=== PATIENT | female | born 1995 | race Two or more races ===

== ENCOUNTER 2018-07-04 07:23 | Inpatient (IN) | payer MEDICAID ==
[~2018-07-04 07:23] MED LIST: cefOXitin 2 GM Vial ONE
[2018-07-04] MEDS ORDERED: Gabapentin 300 MG Cap PO ONE (08:45)
[2018-07-04] MEDS ORDERED: Scopolamine 1.5 MG Transdermal Patch TRDERM SCH (08:45)
[2018-07-04] MEDS ORDERED: Celecoxib 200 MG Cap PO ONE (08:45)
[2018-07-04] MEDS ORDERED: Acetaminophen 500 MG Tab PO ONE (08:45)
[2018-07-04] MEDS ORDERED: Dextrose 5%-Lactated Ringers 1,000 ML IV SCH ×2 (09:15→15:00)
[2018-07-04] MEDS ORDERED: fentaNYL 250 MCG/5 ML SDV ONE ×2 (10:29→11:49)
[2018-07-04] MEDS ORDERED: Propofol 200 MG/20 ML SDV ONE (10:29)
[2018-07-04] MEDS ORDERED: Neostigmine Methylsulfate 1 MG/ML 5 ML Syringe ONE (10:29)
[2018-07-04] MEDS ORDERED: Glycopyrrolate 0.2 MG/ML 5 ML MDV ONE (10:29)
[2018-07-04] MEDS ORDERED: Succinylcholine 200 MG/10 ML MDV ONE (10:29)
[2018-07-04] MEDS ORDERED: Dexamethasone 4 MG/ML SDV ONE (10:29)
[2018-07-04] MEDS ORDERED: Ondansetron 4 MG/2 ML SDV ONE (10:29)
[2018-07-04] MEDS ORDERED: Ropivacaine 50 ML, Dexamethasone 8 MG, EPINEPHrine 0.4 MG, Sodium Chloride 0.9% 27.6 ML NERVRT SCH ×4 (10:30)
[2018-07-04] MEDS ORDERED: Lidocaine 2% 100 MG/5 ML Syringe IVPUSH SCH (10:30)
[2018-07-04] MEDS ORDERED: Ketamine 50 MG in Sodium Chloride 0.9% 49.5 ML IV SCH (10:30)
[2018-07-04] MEDS ORDERED: Ketamine 500 MG/5 ML MDV IV SCH (10:30)
[2018-07-04] MEDS ORDERED: Lactated Ringers 1,000 ML ONE (10:32)
[2018-07-04] MEDS ORDERED: Rocuronium 50 MG/5 ML Vial ONE (11:19)
[2018-07-04] MEDS: cefOXitin 2 GM in Sodium Chloride 0.9% 50 ML IV ONE ×2 (11:36→15:00)
[2018-07-04] MEDS ORDERED: Labetalol 20 MG/4 ML Syringe ONE (12:32)
[2018-07-04] MEDS ORDERED: Insulin Lispro 100 Unit/ML 3 ML KwikPen SUBCUT ONE (14:15)
[2018-07-04] MEDS ORDERED: hydrOXYzine HCl 100 MG/2 ML SDV IM ONE (14:26)
[2018-07-04] MEDS ORDERED: HYDROmorphone 1 MG/ML Syringe IV PRN (15:00)
[2018-07-04] MEDS ORDERED: HYDROmorphone 0.5 MG/0.5 ML Syringe IVPUSH PRN (15:00)
[2018-07-04] MEDS ORDERED: diphenhydrAMINE 50 MG/ML SDV IVPUSH PRN (15:00)
[2018-07-04] MEDS ORDERED: Lactated Ringers 1,000 ML IV SCH (15:00)
[2018-07-04] MEDS ORDERED: Metoclopramide 10 MG/2 ML SDV IVPUSH PRN (15:00)
[2018-07-04] MEDS ORDERED: Ondansetron 4 MG/2 ML SDV IVPUSH PRN (15:00)
[2018-07-04] MEDS ORDERED: Labetalol 20 MG/4 ML Syringe IVPUSH PRN (15:00)
[2018-07-04] MEDS: Lidocaine 0.4%/D5W 2 GM/500 ML BAG IV SCH (15:01)
[2018-07-04] MEDS ORDERED: Pantoprazole 40 MG Vial IVPUSH SCH (16:00)
[2018-07-04] MEDS ORDERED: MVI, Adult with Vitamin K 10 ML, Thiamine 200 MG, Chromium/Copper/Mang/Selen/Zn 1 ML in... IV SCH ×4 (16:00)
[2018-07-04] MEDS: cefOXitin 2 GM in Sodium Chloride 0.9% 50 ML IV SCH ×2 (16:20→22:03)
[2018-07-04] MEDS: Acetaminophen Soln 650 MG/20.3 ML UD Cup PO SCH ×2 (16:27→21:59)
[2018-07-04] MEDS: metFORMIN 500 MG Tab PO SCH (16:27)
[2018-07-04] MEDS: Insulin Lispro 100 Unit/ML 3 ML KwikPen SUBCUT PRN ×2 (16:46→22:00)
[2018-07-04] MEDS: Heparin Sodium 5,000 Units/ML Vial SUBCUT SCH (20:48)
[2018-07-04] MEDS: Gabapentin 250 MG/5 ML Solution ML 470 ML Bottle PO SCH (20:50)
[2018-07-04] MEDS ORDERED: Insulin Glargine,Human Rec. Analog 100 Units/ML 3 ML Pen SUBCUT ONE (21:00)
[2018-07-05] MEDS: Lactated Ringers 1,000 ML IV SCH ×2 (01:12→11:29)
[2018-07-05] MEDS: Acetaminophen Soln 650 MG/20.3 ML UD Cup PO SCH ×4 (03:17→21:05)
[2018-07-05] MEDS ORDERED: Iohexol 647 MG/ML 50 ML SDV IVPUSH SCH (04:00)
[2018-07-05] MEDS: Insulin Lispro 100 Unit/ML 3 ML KwikPen SUBCUT PRN ×2 (04:17→10:11)
[2018-07-05] MEDS: cefOXitin 2 GM in Sodium Chloride 0.9% 50 ML IV SCH ×2 (04:17→11:28)
[2018-07-05] MEDS: hydrOXYzine HCl 100 MG/2 ML SDV IM PRN ×2 (04:25→09:18)
[2018-07-05] MEDS ORDERED: Ondansetron 4 MG Tab.DIS PO PRN (07:30)
[2018-07-05] MEDS: Heparin Sodium 5,000 Units/ML Vial SUBCUT SCH ×2 (07:55→21:05)
[2018-07-05] MEDS: metFORMIN 500 MG Tab PO SCH ×2 (07:59→17:26)
[2018-07-05] MEDS: Celecoxib 200 MG Cap PO SCH (07:59)
[2018-07-05] MEDS: Gabapentin 250 MG/5 ML Solution ML 470 ML Bottle PO SCH ×3 (08:57→21:05)
[2018-07-05] MEDS: SCOPOLAMINE PATCH CHECK TOP SCH (08:57)
[2018-07-05] MEDS ORDERED: Insulin Glargine,Human Rec. Analog 100 Units/ML 3 ML Pen SUBCUT SCH ×2 (09:00→21:00)
[2018-07-05] MEDS: Lidocaine 0.4%/D5W 2 GM/500 ML BAG IV SCH (10:09)
--- NOTE | 2018-07-05 12:16 | PCM.PN ---
- General Info Date of Service: 07/05/18 Admission Dx/Problem (Free Text): Laparoscopic Gastric Bypass Lynn-en-y Subjective Update: Pt reports moderate pain in her back. Was given Vistaril and Dilaudid. Denies abdominal or incisional pain. Tolerating po intake. Denies passing any gas. Functional Status: Reports: Pain Controlled, Tolerating Diet, Ambulating, Urinating, Incentive Spirometry - Review of Systems General: Reports: No Symptoms HEENT: Reports: No Symptoms Pulmonary: Reports: No Symptoms Cardiovascular: Reports: No Symptoms Gastrointestinal: Reports: No Symptoms Genitourinary: Reports: No Symptoms Musculoskeletal: Reports: Back Pain Skin: Reports: No Symptoms Neurological: Reports: No Symptoms Psychiatric: Reports: No Symptoms - Patient Data Vitals - Most Recent: Last Vital Signs Temp 36.5 C 07/05/18 11:39 Pulse 89 07/05/18 11:39 Resp 22 H 07/05/18 11:39 BP 133/89 07/05/18 11:39 Pulse Ox 98 07/05/18 11:39 Weight - Most Recent: 98.248 kg I&O - Last 24 Hours: Intake & Output 07/04/18 07/05/18 07/05/18 22:59 06:59 14:59 Intake Total 595 2170 110 Output Total 1530 1740 920 Balance -935 430 -810 Med Orders - Current: Current Medications Acetaminophen (Tylenol) 650 mg PO Q6H [facility] Last Admin: 07/05/18 10:08 Dose: 650 mg Alogliptin Benzoate (Alogliptin) 25 mg PO DAILY [facility] Last Admin: 07/05/18 09:05 Dose: 25 mg Celecoxib (Celebrex) 200 mg PO DAILY@0800 [facility] Last Admin: 07/05/18 07:59 Dose: 200 mg Cyanocobalamin (Vitamin B12) 1,000 mcg IM ONETIME ONE Stop: 07/06/18 09:01 Diphenhydramine HCl (Benadryl) 50 mg IVPUSH Q4H PRN PRN Reason: ITCHING Gabapentin (Neurontin) 300 mg PO TID [facility] Last Admin: 07/05/18 08:57 Dose: 300 mg Heparin Sodium (Porcine) (Heparin Sodium) 5,000 units SUBCUT Q12H [facility] Last Admin: 07/05/18 07:55 Dose: 5,000 units Hydromorphone HCl (Dilaudid) 0.5 mg IVPUSH Q2H PRN PRN Reason: MODERATE PAIN Hydromorphone HCl (Dilaudid) 1 mg IV Q2H PRN PRN Reason: SEVERE PAIN Last Admin: 07/04/18 18:39 Dose: 1 mg Hydroxyzine HCl (Vistaril) 100 mg IM Q4H PRN PRN Reason: pain Last Admin: 07/05/18 09:18 Dose: 100 mg Lactated Ringer's (Ringers, Lactated) 1,000 mls @ 100 mls/hr IV ASDIRECTED [facility] Last Admin: 07/05/18 11:29 Dose: 100 mls/hr Multivitamins/Minerals 10 ml/Thiamine HCl 200 mg/ Chromium/Copper/Manganese/ Seleni/Zn 1 ml/ Lactated Ringer's 1,013 mls @ 100 mls/hr IV DAILY@1600 AWILDA Insulin Glargine (Lantus Solostar) 20 units SUBCUT BEDTIME [facility] Stop: 07/05/18 21:01 Insulin Human Lispro (Humalog) 0 unit SUBCUT Q6H PRN; Protocol PRN Reason: CORRECTIONAL DOSING Last Admin: 07/05/18 10:11 Dose: 5 units Iohexol (Omnipaque-300) 50 ml IVPUSH . DIRECTED [facility] Stop: 07/05/18 16:00 Labetalol HCl (Normodyne) 5 mg IVPUSH Q5M PRN PRN Reason: SBP over 160 OR DBP over 95 Metformin HCl (Glucophage) 1,000 mg PO BIDMEALS [facility] Last Admin: 07/05/18 07:59 Dose: 1,000 mg Metoclopramide HCl (Reglan) 10 mg IVPUSH Q6H PRN PRN Reason: NAUSEA NOT CONTROL BY ZOFRAN Miscellaneous Information (Remove Patch) 1 ea TRDERM ONETIME ONE Stop: 07/06/18 10:01 Scopolamine Patch (Check) 1 each TOP DAILY [facility] Stop: 07/06/18 15:01 Last Admin: 07/05/18 08:57 Dose: Not Given Ondansetron HCl (Zofran) 4 mg IVPUSH Q4H PRN PRN Reason: Nausea/Vomiting Ondansetron HCl (Zofran Odt) 4 mg PO Q4H PRN PRN Reason: Nausea/Vomiting Pantoprazole Sodium (Protonix Iv) 40 mg IVPUSH Q24H [facility] Last Admin: 07/04/18 16:23 Dose: 40 mg Scopolamine (Transderm-Scop) 1.5 mg TRDERM Q72H [facility] Stop: 07/06/18 08:46 Last Admin: 07/04/18 08:35 Dose: 1.5 mg Discontinued Medications Acetaminophen (Tylenol Extra Strength) 1,000 mg PO ONETIME ONE Stop: 07/04/18 08:46 Last Admin: 07/04/18 08:35 Dose: 1,000 mg Cefoxitin Sodium (Mefoxin) Confirm Administered Dose 2 gm .ROUTE .STK-MED ONE Stop: 07/04/18 06:53 Last Admin: 07/04/18 12:17 Dose: 2 gm Celecoxib (Celebrex) 200 mg PO ONETIME ONE Stop: 07/04/18 08:46 Last Admin: 07/04/18 08:35 Dose: 200 mg Ropivacaine 50 ml/Dexamethasone 8 mg/Epinephrine HCl 0.4 mg/ Sodium Chloride 27.6 ml 0 ml NERVRT ASDIRECTED [facility] Last Admin: 07/04/18 12:09 Dose: 80 syringe Dexamethasone (Dexamethasone) Confirm Administered Dose 4 mg .ROUTE .STK-MED ONE Stop: 07/04/18 10:30 Fentanyl (Sublimaze) Confirm Administered Dose 250 mcg .ROUTE .STK-MED ONE Stop: 07/04/18 10:30 Fentanyl (Sublimaze) Confirm Administered Dose 250 mcg .ROUTE .STK-MED ONE Stop: 07/04/18 11:50 Gabapentin (Neurontin) 300 mg PO ONETIME ONE Stop: 07/04/18 08:46 Last Admin: 07/04/18 08:35 Dose: 300 mg Glycopyrrolate (Robinul) Confirm Administered Dose 1 mg .ROUTE .STK-MED ONE Stop: 07/04/18 10:30 Hydroxyzine HCl (Vistaril) 100 mg IM ONETIME ONE Stop: 07/04/18 14:27 Last Admin: 07/04/18 14:31 Dose: 100 mg Ketamine HCl 50 mg/ Sodium (Chloride) 50 mls @ 17.79 mls/hr IV ASDIRECTED [facility] Dextrose/Lactated Ringer's (Dextrose 5%-Lactated Ringers) 1,000 mls @ 100 mls/ hr IV ASDIRECTED AWILDA Last Admin: 07/04/18 09:43 Dose: 100 mls/hr Cefoxitin Sodium 2 gm/ Sodium (Chloride) 50 mls @ 100 mls/hr IV ONETIME ONE Stop: 07/04/18 10:44 Last Admin: 07/04/18 15:00 Dose: Not Given Lidocaine HCl/Dextrose (Lidocaine 2 Gm/D5w 500 Ml) 2 gm in 500 mls @ 15 mls/hr IV .Q24H AWILDA Stop: 07/05/18 12:00 Last Admin: 07/05/18 10:09 Dose: Not Given Insulin Human Regular 100 unit (/ Sodium Chloride) 100 mls @ 0 mls/hr IV TITRATE AWILDA; Protocol Lactated Ringer's (Ringers, Lactated) Confirm Administered Dose 1,000 mls @ as directed .ROUTE .STK-MED ONE Stop: 07/04/18 10:33 Dextrose/Lactated Ringer's (Dextrose 5%-Lactated Ringers) 1,000 mls @ 75 mls/ hr IV ASDIRECTED AWILDA Lactated Ringer's (Ringers, Lactated) 1,000 mls @ 175 mls/hr IV ASDIRECTED AWIL[facility] Multivitamins/Minerals 10 ml/Thiamine HCl 200 mg/ Chromium/Copper/Manganese/ Seleni/Zn 1 ml/ Dextrose/Lactated Ringer's 1,013 mls @ 75 mls/hr IV DAILY@1600 AWILDA Last Admin: 07/04/18 16:19 Dose: 75 mls/hr Cefoxitin Sodium 2 gm/ Sodium (Chloride) 50 mls @ 100 mls/hr IV Q6H [facility] Stop: 07/05/18 11:29 Last Admin: 07/05/18 11:28 Dose: 100 mls/hr Insulin Glargine (Lantus Solostar) 35 units SUBCUT BEDTIME ONE Stop: 07/04/18 21:01 Last Admin: 07/04/18 21:59 Dose: 35 units Insulin Glargine (Lantus Solostar) 30 units SUBCUT DAILY [facility] Stop: 07/05/18 09:01 Last Admin: 07/05/18 09:04 Dose: 30 units Insulin Human Lispro (Humalog) 5 unit SUBCUT ONETIME ONE Stop: 07/04/18 14:16 Last Admin: 07/04/18 14:16 Dose: 5 units Ketamine HCl (Ketalar) 30 mg IV ASDIRECTED [facility] Labetalol HCl (Normodyne) Confirm Administered Dose 20 mg .ROUTE .STK-MED ONE Stop: 07/04/18 12:33 Lidocaine HCl (Xylocaine 2%) 110 mg IVPUSH ASDIRECTED [facility] Neostigmine Methylsulfate (Neostigmine) Confirm Administered Dose 5 mg .ROUTE .STK-MED ONE Stop: 07/04/18 10:30 Ondansetron HCl (Zofran) Confirm Administered Dose 4 mg .ROUTE .STK-MED ONE Stop: 07/04/18 10:30 Pharmacy Consult (Consult To Pharmacy) 1 each .XX ASDIRECTED [facility] Stop: 07/04/18 15:01 Propofol (Diprivan 20 Ml) Confirm Administered Dose 200 mg .ROUTE .STK-MED ONE Stop: 07/04/18 10:30 Rocuronium [place] (Zemuron) Confirm Administered Dose 100 mg .ROUTE .STK-MED ONE Stop: 07/04/18 11:20 Succinylcholine Chloride (Quelicin) Confirm Administered Dose 200 mg .ROUTE .STK -MED ONE Stop: 07/04/18 10:30 - Exam Quality Assessment: DVT Prophylaxis General: Alert, Oriented HEENT: Pupils Equal, Pupils Reactive, EOMI, Mucous Membr. Moist/Apache Neck: Supple Lungs: Clear to Auscultation Cardiovascular: Regular Rate, Regular Rhythm GI/Abdominal Exam: Normal Bowel Sounds, Soft, No Distention Extremities: Normal Inspection, Normal Range of Motion, Non-Tender, No Pedal Edema, Normal Capillary Refill Skin: Warm, Dry, Intact Wound/Incisions: Healing Well Neurological: No New Focal Deficit Psy/Mental Status: Alert, Normal Affect, Normal Mood - Problem List & Annotations (1) Status post gastric bypass for obesity SNOMED Code(s): 659746284, 392233849, 404536913, 197030724 Code(s): Z98.84 - BARIATRIC SURGERY STATUS Status: Acute Current Visit: Yes (2) Obesity (BMI 30-39.9) SNOMED Code(s): 649533794, 629369645 Code(s): E66.9 - OBESITY, UNSPECIFIED Status: Chronic Current Visit: No - Problem List Review Problem List Initiated/Reviewed/Updated: Yes - Assessment Assessment:: 1. S/P laparoscopic gastric bypass lynn-en-y. 2. Hernia Repair 3. Small bowel resection 4. Liver Biopsy - Plan Plan:: Advance to step II diet. Activity as tolerated. d/c D5LR.
[2018-07-05] MEDS ORDERED: MVI, Adult with Vitamin K 10 ML, Thiamine 200 MG, Chromium/Copper/Mang/Selen/Zn 1 ML in... IV SCH ×4 (16:00)
[2018-07-05] MEDS ORDERED: Pantoprazole 40 MG Delayed-Release Granules 1 Packet PO SCH (16:30)
[2018-07-06] MEDS: Acetaminophen Soln 650 MG/20.3 ML UD Cup PO SCH ×2 (03:06→09:03)
[2018-07-06] MEDS: Lactated Ringers 1,000 ML IV SCH (03:07)
[2018-07-06] MEDS: Heparin Sodium 5,000 Units/ML Vial SUBCUT SCH (08:52)
[2018-07-06] MEDS: Celecoxib 200 MG Cap PO SCH (08:52)
[2018-07-06] MEDS: metFORMIN 500 MG Tab PO SCH (08:52)
[2018-07-06] MEDS: SCOPOLAMINE PATCH CHECK TOP SCH (08:54)
[2018-07-06] MEDS ORDERED: Cyanocobalamin (Vitamin B12) 1,000 MCG/ML SDV IM ONE (09:00)
[2018-07-06] MEDS: Gabapentin 250 MG/5 ML Solution ML 470 ML Bottle PO SCH (09:07)
--- NOTE | 2018-07-07 01:23 | CRLCR ---
INDICATION: Evaluate Lynn-en-Y anastomosis. COMPARISON: None available. FINDINGS: Two plain films of the abdomen are obtained after swallowing oral contrast. The initial examination shows prompt passage of oral contrast through a small gastric pouch into the nondilated proximal small bowel. The next images obtained after a 15 minutes delay, showing prompt passage of contrast through the nondilated mid small bowel, reaching the left lower quadrant. There is no sign of extravasation of contrast from the area of the Lynn-en-Y anastomosis. A Dilip-Maddox drain is seen in the left upper quadrant. Is no sign of distention of the small bowel or colon to suggest obstruction or ileus. There is no sign of free air or distinct mass. The osseous structures are normal in appearance for the patient`s age. The lung bases are not included on today study. IMPRESSION: Widely patent Lynn-en-Y anastomosis with prompt passage of contrast from the small gastric pouch into the nondilated jejunum. No sign of any extravasation of contrast. Dictated by Ash Escobar MD @ Jul 07 2018 1:18AM Signed by Dr. Ash Escobar @ Jul 07 2018 1:20AM
--- NOTE | 2018-07-07 08:39 | DISCH ---
ADMISSION DIAGNOSES: 1. Morbid obesity, BMI 35. 2. Uncontrolled diabetes type 2. 3. Dyslipidemia. 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 Date of surgery: 07/04/2018. Surgeon: Cuong Manriquez MD. HISTORY: Landen is a 23-year-old female with morbid obesity and uncontrolled diabetes. After preoperative evaluation and discussion of possible risks and possible complications, she wished to proceed with surgical procedure. HOSPITAL COURSE: Landen had her surgery on 07/04/2018. She had no operative complications. On postoperative day #1, she was started on a step-2 gastric bypass diet without cereal. She was given Lantus for insulin coverage, Januvia, and metformin. Her activity was good. She received dietary instructions. On postoperative day #2, she was able to be discharged to home without any complications. Activity good. Pain was well managed. Vital signs stable. Oral intake 660, urine output 1550. TERRELL drain put out 80 mL of a light pink serosanguineous drainage. Blood sugars decreased to 136, the last one was 92. PHYSICAL EXAMINATION: GENERAL: Landen is a 23-year-old female. VITAL SIGNS: Height is 5 feet 6 inches, weight is 216 pounds, BMI 35. TPR 97.2, 89, 18, blood pressure 127/79. HEENT: Negative. NECK: Supple. HEART: Regular rate and rhythm. LUNGS: Clear. ABDOMEN: Sutures intact. Incisions look good. 4 x 4 will be replaced over TERRELL drain site. EXTREMITIES: Without peripheral edema. DISPOSITION: Discharged to home. CONDITION: Stable and improving. FOLLOWUP APPOINTMENT: Shruthi Vitale PA-C, at [place], [place] on 07/12/2018 at 10 a.m. HOME MEDICATIONS: 1. Tylenol 650 mg every 6 hours p.r.n. pain. 2. Celebrex 200 mg oral daily, start tomorrow #14. 3. Zofran ODT 4 mg every 4 hours p.r.n. nausea, #30. She is to resume takin. Claritin 10 mg daily. 2. Flovent inhaler one puff p.r.n. shortness of breath. She is to discontinue taking all her vitamins and supplements. Discontinue taking Amaryl, Basaglar, and Januvia. She will continue taking metformin 1000 mg twice daily. DIET: Step 2 gastric bypass diet with no cereal until 07/19/2018. Drink 8 to 10 glasses of water a day. ACTIVITY: No lifting greater than 10 pounds for 2 weeks. Other activity, walk at least 6 times daily inside your home. Driving: Do not drive for 1 week. Shower/bathing: May shower. DISCHARGE INSTRUCTIONS: Notify provider if any fever, increased pain, swelling, redness, nausea, or vomiting. Keep site clean and dry. Wear abdominal binder for 2 weeks and as tolerated. SPECIAL INSTRUCTIONS: Use incentive spirometer 10 times every hour while awake. Check blood sugars 3 to 4 times a day and bring results of blood sugar to clinic appointments. Keep record of oral intake and bring to clinic appointments.
--- NOTE | 2018-07-11 14:08 | OR ---
DATE OF PROCEDURE: 07/04/2018 PREOPERATIVE DIAGNOSIS: Morbid obesity. POSTOPERATIVE DIAGNOSES: 1. Morbid obesity. 2. Marked hepatomegaly. 3. Immobile small bowel secondary to fatty infiltration of small bowel mesentery. 4. Paraesophageal diaphragmatic hernia. OPERATIVE PROCEDURES: 1. Laparoscopic Lynn-en-Y gastric bypass with long limb gastroenterostomy (32692). 2. Miky-Cut needle liver biopsy (36420). 3. Small bowel resection to facilitate mobility of jejunojejunostomy (64148). 4. Repair of paraesophageal diaphragmatic hernia (31202). ANESTHESIA: General. RN BIRTHING: Shruhti Vitale PA-C. INDICATION FOR PROCEDURE: A 23-year-old female presenting with longstanding morbid obesity and increasingly significant comorbidities. After preoperative evaluation and discussion, she wished to proceed with a gastric bypass procedure. Potential risks of procedure including bleeding, infection, leaks from various GI tract closures, problems with bowel obstruction over time, as well as the possibility of cardiopulmonary, septic, or hemorrhagic complications leading to were discussed, and the patient wishes to proceed. DETAILS OF PROCEDURE: The patient was taken to operating room. After general endotracheal anesthesia was induced, she was placed in a lithotomy position and the abdomen prepped and draped. At 15 cm inferior and 5 cm left of xiphoid process, a transverse incision was made and the peritoneal cavity entered under direct vision with an Optiview trocar, inflated to 15 mmHg pressure with CO2. Laparoscope was re-inserted. No underlying trocar insertion site injuries were seen. Following this, bilateral subcostal transversus abdominis plane blocks were placed, and 5 additional trocars were placed across the upper and mid abdomen. Initial exploration revealed marked hepatomegaly with liver volume being roughly 2 to 3 times normal and liver grossly fatty infiltrated. Miky-Cut needle biopsies were obtained from the left lobe of the liver. Minimal bleeding from the biopsy sites was controlled with electrocautery. At this point, the omentum was divided in the midline up to the level of the transverse colon. This allowed identification of small bowel to ligament of Treitz. Small bowel was then traced out 200 cm distal to that point, where it was divided transversely with a DAYANA stapler. The small bowel mesentery at this point was noted to be quite fat laden, making the small bowel relatively immobile. Given this, did facilitate subsequent mobility of the jejunojejunostomy to allow relatively tension-free gastrojejunostomy, 10 cm of the biliopancreatic limb was then excised. Mesentery underlying the artery was divided with Harmonic scalpel and the bowel was then divided with DAYANA stapler and the 10 cm segment of bowel delivered from the field. The small bowel was then traced out 150 cm further distally where the [id number] enteroenterostomy was then accomplished with internal firing of the Endo-DAYANA 60 mm stapler. Common opening was then closed transversely with the same stapler and the angles anastomosed and mesenteric defect approximated with some 0 Ethibond stitch along with 4 mL of fibrin sealant. The divided end of the Lynn limb was then from the mesentery for a few centimeters, which allowed an antecolic position of the Lynn limb up to the level of the gastroesophageal junction without tension. The liver was then retracted anteriorly. The patient was noted to have a moderate-sized paraesophageal diaphragmatic hernia. Peritoneum overlying this was incised and reflected downward. The hernia was then repaired with 0 Ethibond sutures, reinforced with PTFE pledgets. The gastrointestinal balloon catheter was then inflated to 15 mL and pulled up snugly against the EG junction. Gastric wall over the apex of the balloon was then marked with electrocautery, and balloon catheter deflated and pulled up from the esophagus. The lesser omental tissue adjacent to the gastric cardia was then divided, allowing dissection behind the stomach at that level. Pouch formation was initiated with a transverse firing of the DAYANA stapler at the level of the cauterized dedrick on the gastric cardia, and the pouch formation was then completed with additional firings of DAYANA alesia up to and through the angle of His. Upon completion of the pouch, both staple lines were noted to be intact. The anvil of a 25 mm EEA stapler was then attached to a [place] sump-type tube. The latter was brought down through the mouth and take out a small opening in the gastric pouch, allowing the anvil likewise to be pulled down to within the gastric pouch. The divided end of the Lynn limb was then opened, and the main body of the EEA stapler was passed several centimeters into the lumen of the small bowel, brought up the anvil, and thus the gastrojejunostomy was created. Upon removal of the stapler, double donuts of mucosa were noted within it. The small bowel was closed off with a vascular staple line. Gastrojejunostomy was reinforced with some 3-0 Vicryl seromuscular stitch, along with fibrin sealant. Leak test was accomplished with injection of 120 mL of air in the gastric pouch while submerged in the cefoxitin-containing saline solution. No leaks were identified. Two Dilip-Maddox drains were then placed adjacent to the gastrojejunostomy and taken out through subcostal trocar sites. With no further problems noted, trocars were removed and the peritoneal cavity deflated. The incision was closed with some 4-0 Vicryl skin stitch and drains affixed with some 4-0 stitch as well. The patient was taken to the recovery room in satisfactory condition. There were no evident complications. Physician him assistant, Shruthi Vitale, played an essential role in assisting in this case, helping to position the patient, retract structures as needed, as well as suturing and cutting sutures when indicated. Her presence improved patient safety and decreased operative time. Cuong Manriquez MD /[id number]
== END 2018-07-06 11:00 | disposition home or self-care (01) | DRG 403 ==
LOC: JP.SDS 07:23 → JP.SDSSCHI 07:23 → EDSTATUS 11:00 → JP.MS 13:50
PROVIDERS: ADMIT Surgery; ATTEND Surgery
PROC: 0D164ZA Bypass Stomach to Jejunum, Percutaneous Endoscopic Approach (ICD-10-PCS; principal; 2018-07-04)
PROC: 0FB24ZX Excision of Left Lobe Liver, Percutaneous Endoscopic Approach, Diagnostic (ICD-10-PCS; 2018-07-04)
PROC: 0DB84ZZ Excision of Small Intestine, Percutaneous Endoscopic Approach (ICD-10-PCS; 2018-07-04)
PROC: 0BQT4ZZ Repair Diaphragm, Percutaneous Endoscopic Approach (ICD-10-PCS; 2018-07-04)
DX: E66.01 Morbid (severe) obesity due to excess calories (principal); Z68.35 Body mass index [BMI] 35.0-35.9, adult; R16.0 Hepatomegaly, not elsewhere classified; K59.8 Other specified functional intestinal disorders; K76.0 Fatty (change of) liver, not elsewhere classified; K44.9 Diaphragmatic hernia without obstruction or gangrene; E78.5 Hyperlipidemia, unspecified; K21.9 Gastro-esophageal reflux disease without esophagitis; Z79.4 Long term (current) use of insulin; Z90.49 Acquired absence of other specified parts of digestive tract; Z79.899 Other long term (current) drug therapy
CPT/HCPCS: 36415; 74240; 81025; 82962; 86850; 86900; 86901; 88307; 88313; A9270-GY; C9113; J0171; J0330; J0694; J1100; J1170; J1644; J1815; J1815-GY; J2001; J2405; J2704; J2710; J2795; J3010; J3410; J3411; J3420; J3490; J7030; J7042; J7050; J7120